=== PATIENT | female | born 1940 | race Caucasian/White ===

== ENCOUNTER 2016-05-10 08:00 | Emergency (ER) | payer MEDICARE, MEDICAID ==
[2016-05-10] MEDS ORDERED: DUONEB INH ONE ×2 (08:50)
[2016-05-10] MEDS ORDERED: METHYLPRED SOD SUCC 125 MG/2 ML VIAL ONE (08:53)
== END 2016-05-10 14:02 ==
LOC: ER 08:00
CPT/HCPCS: 36415 ×2; 36600 ×2; 71010 ×2; 93005 ×2; 94640 ×2; 96374 ×2; 99285; J2930